=== PATIENT | female | born 1965 | race American Indian/Alaskan Native ===

== ENCOUNTER 2018-04-14 10:33 | Emergency (ER) | payer MEDICAID, OTHER ==
[2018-04-14 10:33] VITALS: BMI 26.4
[2018-04-14 10:45] VITALS: BP 132/81; PULSE 80; RESP 16; TEMP 98; O2SAT 99
--- NOTE | 2018-04-14 11:18 | C.PDOC ---
History Of Present Illness 52 y/o female with dm c/o right heel pain x several weeks, worse when standing. better when dorsiflexed. no hx trauma. Time Seen by Provider: 04/14/18 11:08 Chief Complaint (Nursing): Lower Extremity Problem/Injury History Per: Patient History/Exam Limitations: no limitations Onset/Duration Of Symptoms: Days (21) Current Symptoms Are (Timing): Still Present Severity: Moderate Past Medical History Reviewed: Historical Data, Nursing Documentation, Vital Signs Vital Signs: Last Vital Signs Temp 98 F 04/14/18 10:42 Pulse 80 04/14/18 10:42 Resp 16 04/14/18 10:42 BP 132/81 04/14/18 10:42 Pulse Ox 99 04/14/18 11:46 - Medical History PMH: Diabetes, Gastritis Denies: Chronic Kidney Disease Family History: States: Unknown Family Hx - Social History Hx Tobacco Use: No Hx Alcohol Use: Yes Hx Substance Use: No - Immunization History Hx Tetanus Toxoid Vaccination: No Hx Influenza Vaccination: No Hx Pneumococcal Vaccination: No Review Of Systems Constitutional: Negative for: Fever, Chills Musculoskeletal: Positive for: Foot Pain (right). Negative for: Leg Pain Skin: Negative for: Bruising Neurological: Negative for: Weakness, Numbness Physical Exam - Physical Exam Appears: Non-toxic, No Acute Distress Skin: Warm, Dry Extremity: Normal ROM, Tenderness (right heel; no swelling, erythema or warmth) , No Pedal Edema, No Calf Tenderness Extremity: Bilateral: Atraumatic Pulses: Right Dorsalis Pedis: Normal Neurological/Psych: Oriented x3, Normal Speech, Normal Cognition, Normal Motor, Normal Sensation ED Course And Treatment O2 Sat by Pulse Oximetry: 99 - Other Rad right foot X-Ray: Viewed By Me, Read By Radiologist Interpretation: No acute fracture or dislocation. Small plantar calcaneal spur. Medical Decision Making Medical Decision Making: right heel pain; plantar fasciitis vs heel spur; xray, tylenol Disposition Counseled Patient/Family Regarding: Studies Performed, Diagnosis, Need For Followup - Disposition Referrals: [facility] [Outside] Podiatry Clinic [Outside] Evelyn Lal DPM [Staff Provider] - Disposition: HOME/ ROUTINE Disposition Time: 11:50 Condition: GOOD Additional Instructions: Please follow up with podiatry; call for appointment. Tylenol or Aleve for pain. Instructions: Heel Spurs (DC) Forms: [facility] (Angolan), General Discharge Instructions - Clinical Impression Clinical Impression: Heel spur
--- NOTE | 2018-04-14 11:44 | RAD ---
PROCEDURE: Right Foot Radiographs. HISTORY: heel pain COMPARISON: None. FINDINGS: BONES: Bone alignment and mineralization are normal. There is no acute displaced fracture or bone destruction. There is a small plantar calcaneal spur. JOINTS: Normal. SOFT TISSUES: Normal. OTHER FINDINGS: None. IMPRESSION: No acute fracture or dislocation. Small plantar calcaneal spur.
== END 2018-04-14 11:50 | disposition home or self-care (01) ==
LOC: C.ER 10:33
DX: M77.31 Calcaneal spur, right foot (principal)

== ENCOUNTER 2018-08-01 15:21 | Emergency (ER) | payer SELFPAY ==
[2018-08-01 15:33] VITALS: BMI 26.3
[2018-08-01 15:35] VITALS: BP 131/78; PULSE 75; RESP 17; TEMP 98.5; O2SAT 100
--- NOTE | 2018-08-01 16:12 | C.PDOC ---
History Of Present Illness 52yo female, history of eczema, comes to ER reporting an eczema flare-up, present intermittently x 1 week. She has been using OTC topical creams including 1% Hydrocortisone cream with no relief. She has also been applying peroxide to the areas. Otherwise, denies any pain or swelling. No other complaints. Time Seen by Provider: 08/01/18 15:47 Chief Complaint (Nursing): Abnormal Skin Integrity History Per: Patient History/Exam Limitations: no limitations Onset/Duration Of Symptoms: Days, Intermittent Episodes Current Symptoms Are (Timing): Still Present Location Of Injury: Right: Hand Additional History Per: Patient Past Medical History Reviewed: Historical Data, Nursing Documentation, Vital Signs Vital Signs: Last Vital Signs Temp 98.5 F 08/01/18 15:34 Pulse 75 08/01/18 15:34 Resp 17 08/01/18 15:34 BP 131/78 08/01/18 15:34 Pulse Ox 100 08/01/18 16:12 - Medical History PMH: Diabetes, Gastritis Denies: Chronic Kidney Disease Surgical History: No Surg Hx Family History: States: No Known Family Hx - Social History Hx Tobacco Use: No Hx Alcohol Use: Yes Hx Substance Use: No - Immunization History Hx Tetanus Toxoid Vaccination: No Hx Influenza Vaccination: No Hx Pneumococcal Vaccination: No Review Of Systems Skin: Positive for: Other (eczema flare up) Physical Exam - Physical Exam Appears: Non-toxic, No Acute Distress Skin: Warm, Other (dry, scaly rash, consistent with eczema noted to interdigit space between righ 4th and 5th digits; further patches noted on right hand) ED Course And Treatment O2 Sat by Pulse Oximetry: 100 (RA) Pulse Ox Interpretation: Normal Progress Note: Patient discharged home with prescription for Kenalog and instructed to follow up at clinic in 2-3 days. Disposition Counseled Patient/Family Regarding: Diagnosis, Need For Followup, Rx Given - Disposition Referrals: [facility] [Outside] [facility] [Outside] Disposition: HOME/ ROUTINE Disposition Time: 16:07 Condition: GOOD Prescriptions: Triamcinolone Acetonide [Kenalog 0.025% cream] 15 applic TP BID #1 tube Instructions: Eczema (Atopic Dermatitis) (DC) Forms: [employer] (Mohawk) - Clinical Impression Clinical Impression: Eczema - Scribe Statement The provider has reviewed the documentation as recorded by the Anita Ovalles Provider Attestation: All medical record entries made by the Anita were at my direction and personally dictated by me. I have reviewed the chart and agree that the record accurately reflects my personal performance of the history, physical exam, medical decision making, and the department course for this patient. I have also personally directed, reviewed, and agree with the discharge instructions and disposition.
== END 2018-08-01 16:34 | disposition home or self-care (01) ==
LOC: C.ER 15:21
DX: L30.9 Dermatitis, unspecified (principal); E11.9 Type 2 diabetes mellitus without complications

== ENCOUNTER 2018-11-09 13:34 | Emergency (ER) | payer OTHER ==
[2018-11-09 13:34] VITALS: BMI 26.3
[2018-11-09 13:53] VITALS: TEMP 98.1
--- NOTE | 2018-11-09 14:38 | RAD ---
HISTORY: rule out pneumonia COMPARISON: Chest x-ray performed 10/11/14 TECHNIQUE: Chest PA and lateral FINDINGS: Examination limited by habitus. LUNGS: No focal consolidation. Please note that chest x-ray has limited sensitivity for the detection of pulmonary masses. PLEURA: No significant pleural effusion identified. No definite pneumothorax . CARDIOVASCULAR: Heart size appears top normal. Mild aortic ectasia. Atherosclerotic calcification present. OSSEOUS STRUCTURES: Degenerative changes of the spine. VISUALIZED UPPER ABDOMEN: Unremarkable. OTHER FINDINGS: None. IMPRESSION: No focal consolidation identified.
--- NOTE | 2018-11-09 14:42 | C.PDOC ---
History Of Present Illness 53 year old female with a history of diabetes presents to the emergency department with complaints of cough with green phlegm and congestion for three weeks. Has been taking Mucinex without relief. No sick contacts, recent antibiotic use or recent travel. She denies fever, chills, nausea, vomiting, abdominal pain, chest pain, back pain, neck pain, headache, or any other associated symptoms. Time Seen by Provider: 11/09/18 13:53 Chief Complaint (Nursing): Cough, Cold, Congestion History Per: Patient History/Exam Limitations: no limitations Onset/Duration Of Symptoms: Other (3 weeks) Current Symptoms Are (Timing): Still Present Location Of Pain: None Associated Symptoms: Cough, Other (chest congestion). denies: Fever, Chills, Nausea, Vomiting, Diarrhea Past Medical History Reviewed: Historical Data, Nursing Documentation, Vital Signs Vital Signs: Last Vital Signs Temp 98.1 F 11/09/18 13:51 Pulse 70 11/09/18 13:51 Resp 20 11/09/18 13:51 BP 161/88 H 11/09/18 13:51 Pulse Ox 99 11/09/18 13:51 - Medical History PMH: Diabetes, Gastritis Denies: Chronic Kidney Disease Surgical History: No Surg Hx Family History: States: No Known Family Hx - Social History Hx Tobacco Use: No Hx Alcohol Use: Yes Hx Substance Use: No - Immunization History Hx Tetanus Toxoid Vaccination: No Hx Influenza Vaccination: No Hx Pneumococcal Vaccination: No Review Of Systems Except As Marked, All Systems Reviewed And Found Negative. Constitutional: Negative for: Fever, Chills Eyes: Negative for: Vision Change ENT: Negative for: Nose Congestion, Throat Pain, Throat Swelling Cardiovascular: Negative for: Chest Pain, Palpitations, Light Headedness Respiratory: Positive for: Cough, Sputum, Other (chest congestion). Negative for: Shortness of Breath, SOB with Excertion, Wheezing Gastrointestinal: Negative for: Nausea, Vomiting, Abdominal Pain, Diarrhea, Constipation Musculoskeletal: Negative for: Neck Pain, Back Pain Skin: Negative for: Rash Neurological: Negative for: Weakness, Numbness, Headache, Dizziness Physical Exam - Physical Exam Appears: Well, Non-toxic, No Acute Distress Skin: Normal Color, Warm, Dry Head: Atraumatic, Normacephalic Eye(s): bilateral: Normal Inspection, PERRL, EOMI Nose: Normal Oral Mucosa: Moist Throat: Normal, No Erythema, No Exudate Neck: Normal, Normal ROM, Supple Chest: Symmetrical, No Tenderness Cardiovascular: Rhythm Regular, No Murmur Respiratory: Normal Breath Sounds, No Rales, No Rhonchi, No Wheezing Gastrointestinal/Abdominal: Normal Exam, Bowel Sounds (normoactive), Soft, No Tenderness, No Guarding, No Rebound Back: Normal Inspection, No CVA Tenderness Extremity: Normal ROM Extremity: Bilateral: Atraumatic, No Pedal Edema, Normal Color And Temperature, Normal ROM Pulses: Left Radial: Normal, Right Radial: Normal Neurological/Psych: Oriented x3, Normal Speech, Normal Cognition, Normal Motor, Normal Sensation Gait: Steady ED Course And Treatment O2 Sat by Pulse Oximetry: 99 (RA) Pulse Ox Interpretation: Normal - Other Rad CXR X-Ray: Viewed By Me, Read By Radiologist Interpretation: IMPRESSION: No focal consolidation identified. Medical Decision Making Medical Decision Making: Initial Plan: * CXR Patient made aware of elevated BP reading. Asymptomatic in ED; no headache, SOB, chest pain, vision changes, dizziness, or back pain. States she will followup with her PMD or clinic for re-check and management. Diagnostic testing results and plan of care discussed with patients. Strict instructions given regarding importance of followup, prescription use, and signs/symptoms to return, including fever, chills, vision changes, headache, N/V, or any other new/worsening symptoms. Patient verbalized understanding of discussion. Patient ambulating with steady gait, A&Ox3, with vitals signs stable for discharge. Disposition - Disposition Referrals: [facility] [Outside] Disposition: HOME/ ROUTINE Disposition Time: 14:39 Condition: GOOD Additional Instructions: Increase fluids Rest, no strenuous activity Take antibiotics as prescribed Use inhaler 2 puffs every 6 hours as needed Followup with PMD or clinic within 2 days for Blood pressure check Return to ER for any new/worsening symptoms Prescriptions: Albuterol HFA [Ventolin HFA 90 mcg/actuation (8 g)] 2 puff IH [id number] PRN #60 puff PRN Reason: Cough Azithromycin [Z-Romie] 250 mg PO DAILY #6 tab Instructions: High Blood Pressure (DC), Checking Your Blood Pressure at Home, Upper Respiratory Infection (ED) Forms: General Discharge Instructions, [facility] ([place]), Work Excuse - POA Present On Arrival: None - Clinical Impression Clinical Impression: Lower respiratory infection - PA / RN GYNECOLOGY / Resident Statement MD/DO has reviewed & agrees with the documentation as recorded. - Scribe Statement The provider has reviewed the documentation as recorded by the Scribe All medical record entries made by the Scribe were at my direction and personally dictated by me. I have reviewed the chart and agree that the record accurately reflects my personal performance of the history, physical exam, medical decision making, and the department course for this patient. I have also personally directed, reviewed, and agree with the discharge instructions and disposition.
[2018-11-09 14:49] VITALS: BP 160/90; PULSE 78; RESP 18
[2018-11-09 19:36] VITALS: O2SAT 99
== END 2018-11-09 14:55 | disposition home or self-care (01) ==
LOC: C.ER 13:34
DX: J22 Unspecified acute lower respiratory infection (principal); E11.9 Type 2 diabetes mellitus without complications